=== PATIENT | male | born 1970 | race Caucasian/White ===

== ENCOUNTER 2019-08-13 16:41 | Emergency (ER) | payer BC, OTHER ==
[~2019-08-13] VITALS: Ht 182 cm; Wt 70.3 kg
[~2019-08-13 16:41] MED LIST: CYCL10TA9 PO; NAPR220C11 PO; TRM50T PO
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
[2019-08-13 18:45] VITALS: BP 139/94
== END 2019-08-13 18:47 | disposition home or self-care (01) ==
LOC: EDUNIT# 16:41 → ER 16:42
DX: R29.898 Other symptoms and signs involving the musculoskeletal system (principal); F17.200 Nicotine dependence, unspecified, uncomplicated; V49.40XA Driver injured in collision with unspecified motor vehicles in traffic accident, initial encounter
CPT/HCPCS: 70450; 72125